=== PATIENT | female | born 1960 | race Caucasian/White ===

== ENCOUNTER → 2017-01-14 | Outpatient (CLI) | payer BC ==
[2017-01-14 18:22] LABS: Basophils % (A) 0 %; CH 32.1; CHCM 32.5; Eosinophils # (A) 0.4 k/uL (0-0.7); Eosinophils % (A) 7 %; HCT 42.1 % (34.0-46.0); HDW 2.22; Luc # (Auto) 0.18; Luc % (Auto) 3; Lymphocytes # (A) 1.3 k/uL (1.0-4.8); Lymphocytes % (A) 19 %; MCH 30.7 pg (25.0-35.0); MCHC 30.9 g/dL (31.0-37.0); MCV 99.4 fL (80.0-100.0); Mean Platelet Volume 8.6; Monocytes # (A) 0.4 k/uL (0-1.0); Monocytes % (A) 6 %; Neutrophils # (A) 4.4 k/uL (1.3-7.7); Neutrophils % (A) 66 %; RBC 4.23 m/uL (3.80-5.40); RDW 13.2 % (11.5-15.5); WBC 6.7 k/uL (3.8-10.6); WBC (Perox) 6.62
[2017-01-14 19:18] LABS: ALT 24 U/L (9-52); AST 20 U/L (14-36); Alkaline Phosphatase 56 U/L (38-126); Anion Gap 10 mmol/L; Blood Urea Nitrogen 10 mg/dL (7-17); Carbon Dioxide 22 mmol/L (22-30); Chloride 108 mmol/L (98-107); Cholesterol 171 mg/dL (<200); Glucose 91 mg/dL (74-99); HDL Cholesterol 39 mg/dL (40-60); Non-African American GFR(MDRD) >60 (>60 ml/min/1.73 sqM); Potassium 4.5 mmol/L (3.5-5.1); Sodium 140 mmol/L (137-145); Total Bilirubin 0.7 mg/dL (0.2-1.3); Total Protein 7.1 g/dL (6.3-8.2); Triglycerides 123 mg/dL (<150)
== END | disposition home or self-care (01) ==
LOC: MMGSC 09:56
PROVIDERS: ATTEND Family Medicine
DX: Z00.00 Encounter for general adult medical examination without abnormal findings (principal)
CPT/HCPCS: 36415; 80053; 80061; 84439; 84443; 85025

== ENCOUNTER → 2017-08-05 | Outpatient (CLI) | payer BC | END | disposition home or self-care (01) | LOC: MMGSC 13:57 | PROVIDERS: ATTEND Family Medicine | DX: J02.9 Acute pharyngitis, unspecified (principal) | CPT/HCPCS: 87070 ==

== ENCOUNTER → 2018-02-17 | Outpatient (CLI) | payer BC ==
[2018-02-17 19:44] LABS: Cholesterol 186 mg/dL (<200); Glucose 86 mg/dL (74-99); HDL Cholesterol 37 mg/dL (40-60); LDL Cholesterol,Calculated 122 mg/dL (0-99); Triglycerides 133 mg/dL (<150)
[2018-02-18 05:26] LABS: Hemoglobin A1C 5.8 % (4.0-6.0)
== END | disposition home or self-care (01) ==
LOC: MMGSC 11:30
PROVIDERS: ATTEND Family Medicine
DX: Z00.00 Encounter for general adult medical examination without abnormal findings (principal)
CPT/HCPCS: 36415; 80061; 82947; 83036

== ENCOUNTER → 2020-08-30 | Outpatient (CLI) | payer BC | END | disposition home or self-care (01) | LOC: LABWHC1 10:33 | PROVIDERS: ATTEND Family Medicine | DX: Z20.828 Contact with and (suspected) exposure to other viral communicable diseases (principal) ==

== ENCOUNTER → 2020-09-07 | Outpatient (CLI) | payer BC | END | disposition home or self-care (01) | LOC: LABWHC1 08:44 | PROVIDERS: ATTEND Family Medicine | DX: Z03.818 Encounter for observation for suspected exposure to other biological agents ruled out (principal) | CPT/HCPCS: U0003; C9803 ==

== ENCOUNTER → 2024-09-08 | Outpatient (CLI) | payer OTHER ==
--- NOTE | 2024-09-08 14:39 | BD ---
EXAMINATION TYPE: Axial Bone Density DATE OF EXAM: 09/08/2024 CLINICAL HISTORY: 64 years old Female. ICD-10 CODE: Z78.0 POST MENOPAUSAL WITHOUT HRT Height: Weight: FRAX RISK QUESTIONS: Glucocorticoids (More than 3mos): yes, for asthma (Ex: prednisone, prednisolone, methylprednisolone, dexamethasone, and hydrocortisone). RISK FACTORS HISTORY OF: hx of broken knee, TKR to follow MEDICATIONS: vit d, EXAM MEASUREMENTS: Bone mineral densitometry was performed using the [employer]. Bone mineral density as measured about the Lumbar spine is: ----- L1-L4(G/cm2): 1.134 T Score Values are as follows: ----- L1: -0.3 ----- L2: -0.8 ----- L3: -0.5 ----- L4: -0.2 ----- L1-L4: -0.4 Z Score Values are as follows: ----- L1: 1.0 ----- L2: 0.6 ----- L3: 0.8 ----- L4: 1.2 ----- L1-L4: 0.9 Bone mineral density is her first bone density study. Bone mineral density about the R hip (g/cm2): 0.831 Bone mineral density about the L hip (g/cm2): 1.048 T Score values are as follows: -----R Neck: -0.9 -----L Neck: 0.2 -----R Total: -1.4 -----L Total: 0.3 Z Score values are as follows: -----R Neck: 0.4 -----L Neck: 1.5 -----R Total: -0.4 -----L Total: 1.3 Bone mineral density is a baseline study for her today. FRAX%s: The graph provided illustrates a 19.3% chance for a major osteoporotic fx and a 1.3% chance f or the hips probability for fx in 10 years time. IMPRESSION: Normal (Values between +1 and -1 indicate normal bone mass). Consider repeating this study in 5 year s or sooner if there is some new clinical indication. NOTE: T-SCORE=SD OF THE YOUNG ADULT MEAN. [facility], , 09/08/2024 2:37 PM
== END | disposition home or self-care (01) ==
LOC: RADBDWWP 13:36
PROVIDERS: ATTEND Family Medicine
DX: Z78.0 Asymptomatic menopausal state (principal)
CPT/HCPCS: 77080

== ENCOUNTER 2025-06-13 09:04 | Day surgery (SDC) | payer OTHER ==
[2025-06-13] MEDS: IV FLUID CONTINUATION 1,000 ML IV ONE (10:17)
[2025-06-13] MEDS: LACTATED RINGERS 1,000 ML IV SCH (10:28)
[2025-06-13 10:34] VITALS: TEMP 97.8
[2025-06-13] MEDS ORDERED: LIDOCAINE 2% (PF) 20 MG/ML 5 ML VIAL ONE (10:56)
[2025-06-13] MEDS ORDERED: PROPOFOL 10 MG/ML 20 ML VIAL IV ONE (10:56)
--- NOTE | 2025-06-13 11:21 | P.PCN ---
Date of Procedure: 06/13/25 Procedure(s) Performed: BRIEF HISTORY: Patient is a 65-year-old pleasant white female scheduled for an elective colonoscopy as a part of screening for longstanding history of ulcerative colitis/proctosigmoiditis diagnosed several years ago.\She has been in clinical remission for the last 5 years and not been on any maintenance medications PROCEDURE PERFORMED: Colonoscopy with biopsy. PREOPERATIVE DIAGNOSIS: Screening for longstanding history of ulcerative colitis. IV sedation per Anesthesia. PROCEDURE: After informed consent was obtained, the patient, was brought into the endoscopy unit. IV sedation was administered by Anesthesia under continuous monitoring. Digital rectal examination was normal. Initially the Olympus CF-160 flexible video colonoscope was then inserted in the rectum, gradually advanced into the cecum with moderate to severe difficulty. Careful examination was performed as the scope was gradually being withdrawn. Ileocecal valve and the appendiceal orifice were visualized and appeared normal. Prep was excellent. Mucosa of the cecum, ascending colon, transverse colon, descending colon, sigmoid colon, appeared normal. The proximal rectum there was a 3 mm polyp that was removed by cold biopsy. In the distal rectum up to 7 cm of from the anal verge there was some mucosal erythema and friability consistent with mild active proctitis. Biopsies were done from this area. Retroflexion was performed in the rectum and no lesions were seen. The patient tolerated the procedure well. IMPRESSION: Mild distal proctitis with mucosal erythema and friability after 7 cm from the anal verge status post biopsy 3 mm proximal rectal polyp status post cold biopsy Rest of the colon appeared normal RECOMMENDATIONS: Findings of this examination were discussed with the patient as well as family. She was advised to follow-up with the biopsy results. Follow-up in the office in 2 to 3 weeks.. Recommended repeat colonoscopy in 3 years because of history of ulcerative colitis
[2025-06-13 11:48] VITALS: BP 119/79; PULSE 66; RESP 16
== END 2025-06-13 12:02 | disposition home or self-care (01) ==
LOC: ORWHC2ENDO 09:04
PROVIDERS: ATTEND Internal Medicine Gastroenterology
DX: Z12.11 Encounter for screening for malignant neoplasm of colon (principal); K62.1 Rectal polyp; K62.89 Other specified diseases of anus and rectum
CPT/HCPCS: 88305; 45380; J2704; J2003